=== PATIENT | female | born 1950 | race Native Hawaiian/Other Pacific Islander ===

== ENCOUNTER 2017-08-02 07:20 | Day surgery (SDC) | payer MEDICARE ==
[2017-08-02 07:45] VITALS: BMI 25.6
[2017-08-02] MEDS ORDERED: Lactated Ringer's 500 ML IV SCH (10:00)
[2017-08-02] MEDS ORDERED: Propofol 10 mg/ml Inj (20 ML) ONE (10:03)
[2017-08-02] MEDS ORDERED: Lactated Ringer's 1,000 ML IV ONE (10:05)
[2017-08-02] MEDS ORDERED: Lidocaine Hydrochloride 5 ML INJ ONE (10:10)
[2017-08-02] MEDS ORDERED: Simethicone 40 mg/0.6 ml Liquid (30 ml) ONE (10:25)
[2017-08-02 10:57] VITALS: O2SAT 100
[2017-08-02 13:07] VITALS: PULSE 69; RESP 13
[2017-08-02 13:27] VITALS: BP 167/81; TEMP 97.1
== END 2017-08-02 11:40 | disposition home or self-care (01) ==
LOC: C.ENDO 07:20
PROVIDERS: ATTEND Internal Medicine Gastroenterology
DX: K64.8 Other hemorrhoids (principal)
CPT/HCPCS: 45378; J2704; J3010; J7120